=== PATIENT | male | born 1980 ===

== ENCOUNTER 2018-05-17 18:27 | Emergency (ER) | payer OTHER ==
[2018-05-17 18:52] VITALS: BP 112/69; PULSE 68; RESP 18; TEMP 97.9; O2SAT 99
[2018-05-17] MEDS ORDERED: DiphenhydrAMINE 50 mg/ml Inj IVP STA (19:15)
--- NOTE | 2018-05-17 19:19 | ED PDOC ---
HPI: Headache Time Seen by Provider: 05/17/18 19:02 Chief Complaint (Nursing): Headache Chief Complaint (Provider): headache History Per: Patient History/Exam Limitations: no limitations Current Symptoms Are (Timing): Still Present Quality: Aching, "Pain" Additional Complaint(s): ongoing for a year but worse over the last month, associated with nausea and dizziness (nonvertiginous) No blurry vision or focal weakness or gait disturbance No neck stiffness or fever Has not tried anything for pain PMD Dr Beatty Past Medical History Reviewed: Historical Data, Nursing Documentation, Vital Signs Vital Signs: Last Vital Signs Temp 97.9 F 05/17/18 18:50 Pulse 68 05/17/18 18:50 Resp 18 05/17/18 18:50 BP 112/69 05/17/18 18:50 Pulse Ox 99 05/17/18 18:50 - Medical History PMH: No Chronic Diseases - Surgical History Surgical History: No Surg Hx - Family History Family History: States: No Known Family Hx, Unknown Family Hx - Social History Current smoker - smoking cessation education provided: No Alcohol: None Drugs: Denies - Home Medications Home Medications: Ambulatory Orders Medication Instructions Recorded Calamine/Zinc Oxide [Calamine 10 ml TP BID PRN #1 bottle 02/17/15 Lotion 8%-8% 180 ml] DiphenhydrAMINE [Benadryl] 2 tab PO Q6 PRN #25 cap 02/17/15 Prednisone 60 mg PO DAILY #12 tab 02/17/15 DiphenhydrAMINE [Benadryl] 25 mg PO Q6H PRN #28 cap 04/19/16 predniSONE [predniSONE Tab] 40 mg PO DAILY #14 tab 04/19/16 Acetaminophen [Tylenol Extra 1,000 mg PO Q6 PRN #100 tablet 05/17/18 Strength] Naproxen [Naprosyn] 1 tab PO BID PRN #30 tab 05/17/18 - Allergies Allergies/Adverse Reactions: Allergies Allergy/AdvReac Type Severity Reaction Status Date / Time No Known Allergies Allergy Verified 05/17/18 18:50 Review of Systems ROS Statement: Except As Marked, All Systems Reviewed And Found Negative (and as per HPI) Constitutional: Negative for: Fever, Chills Eyes: Negative for: Vision Change Gastrointestinal: Positive for: Nausea. Negative for: Vomiting, Abdominal Pain , Diarrhea Neurological: Positive for: Headache, Dizziness. Negative for: Weakness, Numbness, Incoordination, Seizures Physical Exam - Reviewed Nursing Documentation Reviewed: Yes Vital Signs Reviewed: Yes - Physical Exam Appears: Positive for: Non-toxic, In Acute Distress (mild painful) Head Exam: Positive for: ATRAUMATIC, NORMOCEPHALIC Skin: Positive for: Warm, Dry Eye Exam: Positive for: EOMI, PERRL ENT: Negative for: Pharyngeal Erythema, Tonsillar Exudate Neck: Positive for: Painless ROM, Supple Cardiovascular/Chest: Positive for: Regular Rate, Rhythm, Chest Non Tender. Negative for: Murmur Respiratory: Positive for: Normal Breath Sounds. Negative for: Wheezing Gastrointestinal/Abdominal: Positive for: Soft. Negative for: Tenderness Back: Positive for: Normal Inspection. Negative for: Decreased ROM Extremity: Positive for: Normal ROM. 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 Negative for: Motor/Sensory Deficits, Aphasia - Laboratory Results Result Diagrams: 05/17/18 19:27 05/17/18 19:27 - ECG O2 Sat by Pulse Oximetry: 99 Medical Decision Making Medical Decision Making: Time: 2005 --CT head FINDINGS: Brain: Unremarkable. Ventricles: Unremarkable. Bones/joints: Unremarkable. No acute fracture. Soft tissues: Unremarkable. Sinuses: Paranasal sinus mucosal changes. Mastoid air cells: Unremarkable as visualized. IMPRESSION: No acute intracranial pathology or traumatic injury. Thank you for allowing us to participate in the care of your patient. Dictated and Authenticated by: Bal Jerome MD 05/17/2018 8:06 PM Eastern Time ([place] & [place]) 8:30p No clinically significant lab abnormalities Pt feels better. Stable for dc with clinic follow up. Disposition - Clinical Impression Clinical Impression: Headache Counseled Patient/Family Regarding: Studies Performed, Diagnosis, Need For Followup, Rx Given - Disposition Referrals: [facility] [Outside] - 05/18/18 ([facility] EN 1-2 SEMANAS A [facility]) Disposition: Routine/Home Disposition Time: 20:33 Condition: IMPROVED Prescriptions: Acetaminophen [Tylenol Extra Strength] 1,000 mg PO Q6 PRN #100 tablet PRN Reason: headache Naproxen [Naprosyn] 1 tab PO BID PRN #30 tab PRN Reason: headache Instructions: Headache, Adult Print Language: MEXICAN
[2018-05-17 19:31] LABS: BASO # 0.1 K/uL (0.0-0.2); EOS # 0.5 K/uL (0.0-0.7); EOS % 7.8 % (0.0-4.0); HEMOGLOBIN 15.7 g/dL (12.0-18.0); LYMPH # 1.9 K/uL (1.0-4.3); LYMPH % 31.9 % (20.0-40.0); MEAN CELL VOLUME 94.2 fl (80.0-94.0); MEAN CORPUSCULAR HEMOGLOBIN 32.2 pg (27.0-31.0); MEAN CORPUSCULAR HGB CONC 34.1 g/dL (33.0-37.0); MEAN PLATELET VOLUME 8.7 fl (7.2-11.7); MONO # 0.4 K/uL (0.0-0.8); MONO % 7.2 % (0.0-10.0); NEUT # 3.1 K/uL (1.8-7.0); NEUT % 52.1 % (50.0-75.0); RBC 4.89 Mil/uL (4.40-5.90); RED CELL DISTRIBUTION WIDTH 12.9 % (11.5-14.5)
[2018-05-17 19:41] LABS: ALB/GLOB RATIO 1.5 (1.0-2.1); ALBUMIN 4.5 g/dL (3.5-5.0); ALT/SGPT 61 U/L (21-72); AST/SGOT 45 U/L (17-59); BLOOD UREA NITROGEN 12 mg/dl (9-20); CALCIUM 9.2 mg/dL (8.4-10.2); GFR AFRICAN-AMERICAN > 60; GFR NON-AFRICAN AMERICAN > 60
--- NOTE | 2018-05-18 11:11 | CT ---
Date of service: 05/17/2018 PROCEDURE: CT HEAD WITHOUT CONTRAST. HISTORY: headache nausea COMPARISON: 03/14/2010 TECHNIQUE: Axial computed tomography images were obtained through the head/brain without intravenous contrast. Radiation dose: Total exam DLP = 773.50 mGy-cm. This CT exam was performed using one or more of the following dose reduction techniques: Automated exposure control, adjustment of the mA and/or kV according to patient size, and/or use of iterative reconstruction technique. FINDINGS: HEMORRHAGE: None. No evidence of intra or extra-axial hemorrhage. BRAIN: No mass effect or edema. No atrophy or chronic microvascular ischemic changes. VENTRICLES: Unremarkable. No hydrocephalus. CALVARIUM: Unremarkable. PARANASAL SINUSES: Chronic ethmoid air cell disease. MASTOID AIR CELLS: Unremarkable as visualized. No inflammatory changes. OTHER FINDINGS: None. IMPRESSION: No acute intracranial abnormalities. No significant findings to account for the clinical presentation. No significant interval change compared to the prior examination(s). Concordant results (preliminary interpretation) provided by [facility]. Procedure Completed: 19:52 Preliminary ([facility]) Report: Dictated and Authenticated: 20:06. Final Interpretation: 11:09. May 18, 2018.
== END 2018-05-17 21:25 | disposition home or self-care (01) ==
LOC: H.ER 18:27
DX: R51 Headache (principal)
CPT/HCPCS: 70450; 80053; 83735; 84100; 85025; 96374; 99285; J1200; J2765